=== PATIENT | male | born 1965 | race Native Hawaiian/Other Pacific Islander ===

== ENCOUNTER 2019-03-11 19:13 | Emergency (ER) | payer OTHER ==
[~2019-03-11] VITALS: Ht 180.3 cm; Wt 64.9 kg
[2019-03-11 20:40] VITALS: BP 128/72; TEMP 73
== END 2019-03-11 20:40 | disposition home or self-care (01) ==
LOC: ED 19:13
DX: M75.101 Unspecified rotator cuff tear or rupture of right shoulder, not specified as traumatic (principal); M25.511 Pain in right shoulder; G89.29 Other chronic pain
CPT/HCPCS: 96372; 99283; J1170

== ENCOUNTER 2019-08-26 15:57 | Emergency (ER) | payer OTHER ==
[~2019-08-26] VITALS: Ht 180.3 cm; Wt 67.1 kg
[2019-08-26] MEDS ORDERED: CETI10TA PO (16:26)
[2019-08-26] MEDS ORDERED: FLONASE AL50 MCG/ACT NAS (16:29)
[2019-08-26] MEDS ORDERED: PERCOCET1 TA1 PO (16:31)
[2019-08-26] MEDS ORDERED: TYLENOL/COD PO (16:33)
[2019-08-26] MEDS ORDERED: PROTONIX20 MG PO (16:34)
[2019-08-26 17:00] LABS: PLATELET COUNT 421 K/uL (142-355)
[2019-08-26 17:12] LABS: POTASSIUM 3.5 mmol/L (3.6-5.2); SODIUM 136 mmol/L (136-145)
[2019-08-26 22:22] VITALS: BP 143/100; TEMP 99.5
== END 2019-08-26 22:22 | disposition home or self-care (01) ==
LOC: ED 15:57
PROVIDERS: Emergency Medicine
DX: K29.00 Acute gastritis without bleeding (principal); K52.9 Noninfective gastroenteritis and colitis, unspecified; R19.7 Diarrhea, unspecified
CPT/HCPCS: 36415; 80053; 81000; 82150; 83605; 83690; 84484; 85027; 96360; 96374; 96375; 96376; 99284; J1885; J2175; J2270; J2405

== ENCOUNTER 2021-02-04 20:42 | Emergency (ER) | payer OTHER ==
[~2021-02-04] VITALS: Ht 180.3 cm; Wt 70.3 kg
[~2021-02-04 20:42] MED LIST: CETI10TA PO; FLONASE AL50 MCG/ACT NAS; PERCOCET1 TA1 PO; PROTONIX20 MG PO; TYLENOL/COD PO
[2021-02-04 21:28] LABS: PLATELET COUNT 302 K/uL (142-355)
[2021-02-04 21:38] LABS: POTASSIUM 3.4 mmol/L (3.6-5.2); SODIUM 134 mmol/L (136-145)
[2021-02-04 21:46] LABS: PARTIAL THROMBOPLASTIN TIME 23.3 SECONDS (24.5-33.6)
[2021-02-04 22:12] VITALS: BP 140/90; TEMP 97.9
== END 2021-02-04 22:12 | disposition home or self-care (01) ==
LOC: ED 20:42
PROVIDERS: Hospitalist
DX: R60.0 Localized edema (principal); N28.9 Disorder of kidney and ureter, unspecified; Z98.890 Other specified postprocedural states
CPT/HCPCS: 36415; 80053; 81000; 82550; 82553; 83880; 84484; 85027; 85610; 85730; 93005; 96374; 99284; J1940

== ENCOUNTER 2023-03-03 20:26 | Emergency (ER) | payer OTHER ==
[~2023-03-03] VITALS: Ht 180.3 cm; Wt 68.0 kg
[2023-03-03 21:56] VITALS: BP 133/96; TEMP 98.6
== END 2023-03-03 21:56 | disposition home or self-care (01) ==
LOC: ED 20:26
DX: J32.9 Chronic sinusitis, unspecified (principal); I10 Essential (primary) hypertension
CPT/HCPCS: 96372; 99282; J1885